=== PATIENT | female | born 1945 | race Caucasian/White ===

== ENCOUNTER 2021-05-01 12:43 | Emergency (ER) | payer OTHER ==
[~2021-05-01] VITALS: Ht 157.5 cm; Wt 75.0 kg
[2021-05-01] MEDS ORDERED: ACET-3385 PO (12:50)
[2021-05-01] MEDS ORDERED: CLOP75TA60 PO (12:50)
[2021-05-01] MEDS ORDERED: ASPI-1450 PO (12:50)
[2021-05-01] MEDS ORDERED: METO25XL PO (12:50)
[2021-05-01] MEDS ORDERED: LOSA50TA37 PO (12:50)
[2021-05-01] MEDS ORDERED: GABA-1216 PO (12:50)
[2021-05-01] MEDS ORDERED: HYDROCODONE/ACETAMINOPHEN 5-325 MG TABLET PO ONE (13:45)
[2021-05-01 15:02] VITALS: BP 148/79
== END 2021-05-01 15:04 | disposition home or self-care (01) ==
LOC: EMS 12:54
DX: S20.212A Contusion of left front wall of thorax, initial encounter (principal); I25.2 Old myocardial infarction; Z86.73 Personal history of transient ischemic attack (TIA), and cerebral infarction without residual deficits; Z79.82 Long term (current) use of aspirin; Y04.2XXA Assault by strike against or bumped into by another person, initial encounter; Y93.89 Activity, other specified; Y92.89 Other specified places as the place of occurrence of the external cause; Y99.8 Other external cause status
CPT/HCPCS: 71045; 99283